=== PATIENT | male | born 1985 | race Caucasian/White ===

== ENCOUNTER 2020-11-20 02:16 | Emergency (ER) | payer OTHER ==
[~2020-11-20] VITALS: Ht 190.5 cm; Wt 115.0 kg
--- NOTE | 2020-11-20 02:59 | NUR ---
pt walked back to room 37. a&ox4, placed on cr monitor, no complaint of chest pain, just needs to take deeper breaths. states he feels as if he has afib again, as before. PIV started to right AC, PA to bedside to giuseppe pt. labs drawn, and sent to lab. ekg done in triage. call kathleen within reach.
[2020-11-20] MEDS ORDERED: SODIUM CHLORIDE 0.9% 1,000ML IVBOLUS ONE (03:00)
--- NOTE | 2020-11-20 03:10 | NUR ---
pt resting comfortably in gurney. states he feels like he is in afib again. pt remains on cr monitor, good BP noted, and charted, and MD aware. o2 sats are within levels. 96%. 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
[2020-11-20 03:11] LABS: BASOPHILS % (AUTO) 0 % (0-1); EOSINOPHILS % (AUTO) 1 % (1-7); LYMPHOCYTES % (AUTO) 45 % (22-44); MEAN CORPUSCULAR HGB CONC 34.2 g/dL (33.2-36.2); MEAN PLATELET VOLUME 7.9 fL (7.4-10.4); MONOCYTES % (AUTO) 9 % (2-9); NEUTROPHILS % (AUTO) 44 % (42-75); PLATELET COUNT 317 x10^3/uL (130-400); RED BLOOD COUNT 5.58 x10^6/uL (4.38-5.82); RED CELL DISTRIBUTION WIDTH 13.9 % (9.4-14.8)
[2020-11-20 03:18] LABS: ALANINE AMINOTRANSFERASE 59 U/L (12-78); ANION GAP 7 mmol/L (5-15); CHLORIDE 105 mmol/L (98-107); CREATININE 1.05 mg/dL (0.7-1.3)
[2020-11-20 03:29] LABS: ALKALINE PHOSPHATASE 73 U/L (45-117); BILIRUBIN,TOTAL 0.2 mg/dL (0.2-1.0); TOTAL PROTEIN 7.9 g/dL (6.4-8.2); TROPONIN I < 0.015 ng/mL (0.000-0.045)
[2020-11-20 03:41] LABS: MD SCAN
[2020-11-20] MEDS ORDERED: PROPOFOL 10 MG/ML, 20ML ONE ×2 (04:46→04:47)
[2020-11-20] MEDS ORDERED: PROPOFOL 10 MG/ML, 20ML IVPush ONE (05:00)
[2020-11-20 05:44] VITALS: BP 128/83
--- NOTE | 2020-11-20 05:45 | NUR ---
pt requested to be cardioverted out of rythm noted on cr monitor. MD aware, and pt prepared for conscious sedation procedure. iv intact. pt on cr monitor, and pads placed for cardioversion. MD to bedside, and time out ocurred, and charted. baseline vital signs charted and pt sedation charted. see conscious sedation sheets for information and v/s during procedure. pt tolerated cardioversion of 150j synchronized. rythm change, p waves present, and pt to be monitored until back to baseline.
--- NOTE | 2020-11-20 05:46 | NUR ---
pt monitored for 30 min post procedure, and is back to baseline airway, breathing and circulation. v/s within range. noted on chart. pt ambulatory, and clear speech with good aeration and oxygenation.
--- NOTE | 2020-11-20 05:47 | NUR ---
f/u and d/c instructions given to pt, and his was updated via phone. pt tolerated well, and v/u of d/c instructions.
== END 2020-11-20 06:08 | disposition home or self-care (01) ==
LOC: ED 02:46
DX: I48.91 Unspecified atrial fibrillation (principal); F10.120 Alcohol abuse with intoxication, uncomplicated; R00.0 Tachycardia, unspecified; I44.0 Atrioventricular block, first degree; Z72.9 Problem related to lifestyle, unspecified; Y90.9 Presence of alcohol in blood, level not specified
CPT/HCPCS: 36415; 71045; 80053; 80320; 83735; 84443; 84484; 85025; 92960; 93005; 96360; 96361; 99152; 99285; J2704; J7030; G0480